=== PATIENT | male | born 1960 | race Caucasian/White ===

== ENCOUNTER 2019-05-24 14:17 | Outpatient (CLI) | payer MEDICARE ==
--- NOTE | 2019-05-24 16:15 | RAD ---
PA AND LATERAL CHEST: Date: 05/24/19 HISTORY: Dyspnea. COMPARISON: None. FINDINGS: Heart size is within normal limits. There is a thin rim of calcification which is felt to be related to the left ventricular wall. 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 The mediastinal structur es are unremarkable. The lungs are clear of any infiltrates. No signs of failure or pleural effusions . IMPRESSION: Calcification along the left ventricular wall. This could be pericardial effusion. It could be relate d to a ventricular aneurysm. Echocardiogram may be helpful in further assessment. Findings telephoned to Dr. Torres. CODE CR. POS: [facility]
== END 2019-05-24 14:18 | disposition home or self-care (01) ==
LOC: RAD 14:17
PROVIDERS: ATTEND Internal Medicine Pulmonary Disease
DX: R06.00 Dyspnea, unspecified (principal); R91.8 Other nonspecific abnormal finding of lung field
CPT/HCPCS: 71046

== ENCOUNTER 2019-06-27 19:30 | Outpatient (CLI) | payer MEDICARE, OTHER | END 2019-06-27 19:31 | disposition home or self-care (01) | LOC: SLEEPLAB 19:30 | PROVIDERS: ATTEND Internal Medicine Pulmonary Disease | DX: G47.33 Obstructive sleep apnea (adult) (pediatric) (principal); R06.83 Snoring; G47.10 Hypersomnia, unspecified; J44.9 Chronic obstructive pulmonary disease, unspecified; G47.00 Insomnia, unspecified; E11.9 Type 2 diabetes mellitus without complications | CPT/HCPCS: 95810 ==

== ENCOUNTER 2019-07-26 08:26 | Outpatient (CLI) | payer MEDICARE, OTHER ==
--- NOTE | 2019-07-26 10:25 | BD ---
DEXA SCAN: INDICATION: Osteoporosis screening. COMPARISON: None. FINDINGS: Lumbar Spine: BMD (g/cm2) L1 1.159 T-Score: 0.8 Z-Score: 1.3 L2 1.275 T-Score: 1.6 Z-Score: 2.2 L3 1.242 T-Score: 1.3 Z-Score: 1.8 L4 1.247 T-Score: 1.4 Z-Score: 2.0 L1-L4 1.232 T-Score: 1.3 Z-Score: 1.8 Femoral Neck: 1.021 T-Score: 0.7 Z-Score: 1.6 Total Femur: 1.131 T-Score: 0.7 Z-Score: 1.1 Impression: Baseline WHO criteria, the patient's bone mineral density is within normal limits. POS: [facility]
== END 2019-07-26 08:27 | disposition home or self-care (01) ==
LOC: BICMAMMO 08:26
PROVIDERS: ATTEND Nurse Practitioner Family
DX: Z13.820 Encounter for screening for osteoporosis (principal); M81.0 Age-related osteoporosis without current pathological fracture; E03.9 Hypothyroidism, unspecified; E55.9 Vitamin D deficiency, unspecified
CPT/HCPCS: 77080

== ENCOUNTER 2021-02-01 09:32 | Outpatient (CLI) | payer MEDICARE, OTHER | END 2021-02-01 09:33 | disposition home or self-care (01) | LOC: BICRAD 09:32 | PROVIDERS: ATTEND Internal Medicine Pulmonary Disease | DX: R06.00 Dyspnea, unspecified (principal); I51.5 Myocardial degeneration | CPT/HCPCS: 71046 ==